=== PATIENT | male | born 1945 ===

== ENCOUNTER 2024-07-22 09:11 | Outpatient (AMB) | payer MEDICARE, SELFPAY ==
--- NOTE | 2024-07-22 09:13 | MHC.OFFVIS ---
Vital Signs 07/22/24 09:21 Height 5 ft 11 in Weight 173 lb 11.588 oz BMI 24.2 BP 162/93 H Blood Pressure Location Lt brachial Position Sitting Pulse 68 Intake Visit Reasons: Colonoscopy Screening Intake Note: Raul presents to in office visit as a new patient for colonoscopy screening. CC: Patient reports that his last colonoscopy was done 5 years ago at [facility] and they found 3 polyps that they could not removed because he was on blood thinners. Denies having any GI symptoms or concerns today. Chief Contract Officer Required: No Accompanied by: Self / Same As Patient Allergies aspirin Allergy (Unknown, Verified 07/22/24 09:24) Unknown HPI HPI Colonoscopy Screening: Details: 79-year-old male here for preprocedural meeting to discuss a screening colonoscopy. He is referred by [facility]. PMX History of brainstem infarction CVA Cervical radiculopathy Chronic low back pain Urinary retention Pre diabetes Hydrocele High cholesterol Hypertension * SURGICAL HISTORY Colonoscopy @ 2019 at [facility]= 3 on remove polyps Cervical disc repair * ALLERGIES Aspirin - chest tightness * [facility]: none in our system TODAY'S VISIT He had a colonoscopy 5 years ago at [facility] and he says they found 3 polyps. However, they did not remove him because he was on blood thinners at the time. The blood thinner was plavix and he is currently on it. This CVA did not leave him with any residual deficits. He denies cardiac or respiratory problems. NO anesthesia or sedation problems No ID problems. He had 3 polyps but there is no known FHX crc or polyps. [facility] Surgical History H/O colonoscopy Social History Alcohol intake: current Alcohol intake frequency: holidays/special occasions only Patient Tobacco Use Status: Never used Tobacco Use of substances other than those prescribed or required for medical reasons: No Review of Systems Const Denies fatigue, Denies fever(s), Denies night sweats, Denies poor appetite and Denies weight loss Eyes Details: glasses Reports requires corrective lenses ENT Reports Normal hearing present, Denies dental pain, Denies dysphagia, Denies hearing loss, Denies mouth pain, Denies odynophagia, Denies throat swelling, Denies tongue swelling and Reports other (Dentition adequate) Card Reports no additional complaints Resp Reports no additional complaints GI Details: Denies abdominal pain, Denies melena, Denies bloating, Denies hematochezia, Denies constipation, Denies GI cramping, Denies dysphagia, Denies excessive flatus, Denies early satiety, Denies heartburn, Denies diarrhea, Denies nausea, Denies odynophagia, Denies vomiting and Denies hematemesis Skin/Breast Denies pruritus, Denies lesions, Denies rash and Denies jaundice Neuro Reports Normal hearing present and Denies Abnormal speech present Endo Denies fatigue Aller/Immun Denies throat swelling and Denies tongue swelling Physical Exam Vital Signs: Last Vital Signs Pulse 68 07/22/24 09:21 BP 162/93 H 07/22/24 09:21 BMI result Body Mass Index 24.2 Const General: cooperative, no acute distress, well developed and well groomed Nutritional Appearance: average body habitus and well nourished Orientation/consciousness: oriented to person, oriented to place and oriented to time Limitations: No language barrier HEENT Head: Yes normocephalic and Yes atraumatic Eyes General: appearance normal, both eyes and all related structures Pupils: Equal, round and reactive pupils present Neck Neck: Yes normal visual inspection and Yes no lymphadenopathy Thyroid: Thyroid normal Resp Effort & Inspection: normal respiratory effort and able to speak in complete sentences Auscultation: clear to auscultation bilaterally Cardio Rate: regular rate Rhythm: regular rhythm Heart sounds: Normal, physiologic split S2 sound present Peripheral pulses: radial pulses present and posterior tibial pulses present GI Inspection: No distended and No Abdominal panniculus present Palpation (GI): Soft to palpation, nontender, no guarding, not rigid and No hepatosplenomegaly present Percussion: Yes normal to percussion Auscultation: normal bowel sounds Rectal Exam - Male: Yes deferred Skin General skin exam: no rashes or lesions noted, turgor normal, skin not dry, no jaundice, No spider nevi and no striae Rashes: no rashes Nails: normal Neuro General: oriented to person, oriented to place and oriented to time Cranial nerves: Yes Equal, round and reactive pupils present and Yes Normal hearing present Speech: No Abnormal speech present Extrem General: Yes normal to inspection, No clubbing, No cyanosis and No edema Psych Appearance: grossly normal and well kempt Mental Status: mental status grossly normal Speech and movement: Normal speech and movement present Affect: normal affect Attitude: cooperative Thought process: Normal thought process present and not confabulating Thought content: Normal thought content present Insight: Good insight present (Psych) Judgement: Good judgement present (Psych) Assessment & Plan Assessment & Plan (1) Tubular adenoma of colon: Comment: @ 2019 at [facility]= 3 unremoved polyps Code(s): D12.6 - Benign neoplasm of colon, unspecified Category: Medical (2) Pre-op examination: Code(s): Z01.818 - Encounter for other preprocedural examination Category: Medical Plan He had a colonoscopy 5 years ago at [facility] and he says they found 3 polyps. However, they did not remove him because he was on blood thinners at the time. The blood thinner was plavix and he is currently on it. This CVA did not leave him with any residual deficits. He denies cardiac or respiratory problems. NO anesthesia or sedation problems No ID problems. He had 3 polyps but there is no known FHX crc or polyps. Orders: Orders Comprehensive Met. Panel Today D12.6 - Benign neoplasm of colon, unspecified Colonoscopy - GI Use Only Today D12.6 - Benign neoplasm of colon, unspecified Complete Blood Count Auto Diff Today D12.6 - Benign neoplasm of colon, unspecified Medications: New sod sulf-pot chloride-mag sulf 1.479-0.188- 0.225 gram (Sutab) PO PER PKG DIR for colonoscopy prep 24 tabs 0RF Coding Level of Care Code New Pt Level 3 (42612) Diagnoses Tubular adenoma of colon D12.6 Pre-op examination Z01.818
[2024-07-22 09:21] VITALS: BP 162/93; PULSE 68; BMI 24.2
== END 2024-07-22 09:55 | disposition home or self-care (01) ==
PROVIDERS: PCP Physician Assistant Medical; Visit Provider Nurse Practitioner
DX: D12.6 Benign neoplasm of colon, unspecified (principal); Z01.818 Encounter for other preprocedural examination
CPT/HCPCS: 99203

== ENCOUNTER → 2024-07-22 09:11 | Outpatient (BNVA) | payer MEDICARE, SELFPAY | PROVIDERS: PCP Physician Assistant Medical; Visit Provider Nurse Practitioner | DX: Z01.818 Encounter for other preprocedural examination (principal); D12.6 Benign neoplasm of colon, unspecified | CPT/HCPCS: 99202 ==

== ENCOUNTER 2024-12-09 05:57 | Day surgery (SDC) | payer MEDICARE, SELFPAY ==
[2024-12-07 12:44] VITALS: BMI 24.3
--- NOTE | 2024-12-08 13:27 | P.CONAN_ITS ---
Documented by User: Reema Munoz NP 12/08/24 13:27 HPI - Anesthesia Eval Consult details Narrative: 79yo M for Colonoscopy Plavix for hx CVA PMFSH Active Problems Active Problems: All Active Problems Pre-op examination (Acute) Tubular adenoma of colon (Acute) Hydrocele (Acute) Pre-diabetes (Acute) Chronic low back pain (Acute) Osteoarthritis of cervical and lumbar spine (Acute) Brainstem infarction (Acute) High cholesterol (Acute) Hypertension (Acute) Past Medical History Medical History Chronic low back pain Elevated cholesterol Brain stem infarction Arthritis Pre-diabetes HTN (hypertension) Surgical History Surgical History History of surgery on arm H/O colonoscopy Social History Social History Are you a primary direct support professional caregiver to a significant other at home: No Do you presently have visiting nurse or other home services: No Alcohol intake: current Alcohol intake frequency: does not drink Patient Tobacco Use Status: Never used Tobacco Use of substances other than those prescribed or required for medical reasons: No Have you been hit, kicked, punched, or otherwise hurt by someone within the past year? If so, by whom?: No Are you DNR?: No Advance Directives: No Advance Directives Information Provided: Yes Advance Directives on File: No Recently lost weight without trying: No Nutrition Risks: No Nutritional Risk Poor oral hygiene: No Meds Allergies Allergy/AdvReac Type Severity Reaction Status Date / Time aspirin Allergy Unknown Unknown Verified 12/09/24 06:53 Home Medications ?Medication ?Instructions ?Recorded ?Confirmed ?Last Taken ?Type clopidogrel 75 mg tablet 75 mg PO DAILY 07/22/24 12/09/24 12/08/24 History lisinopril 40 mg tablet 40 mg PO DAILY 07/22/24 12/09/24 12/08/24 History atorvastatin 40 mg tablet 40 mg PO DAILY 12/07/24 12/09/24 12/08/24 History Exam Height,Weight and Vital Signs: Height 5 ft 11 in Weight 78.925 kg Assessment and Plan Assessment Anesthesia Assessment: Chart Reviewed Documented by User: Nneka Mcdowell MD 12/09/24 08:20 PMFSH Past Medical History Medical History Chronic low back pain Elevated cholesterol Brain stem infarction Arthritis Pre-diabetes HTN (hypertension) Family History Family history of problems with anesthesia: No Surgical History Surgical History History of surgery on arm H/O colonoscopy History of Problems with Anesthesia: No Social History Social History Are you a primary direct support professional caregiver to a significant other at home: No Do you presently have visiting nurse or other home services: No Alcohol intake: current Alcohol intake frequency: does not drink Patient Tobacco Use Status: Never used Tobacco Use of substances other than those prescribed or required for medical reasons: No Have you been hit, kicked, punched, or otherwise hurt by someone within the past year? If so, by whom?: No Are you DNR?: No Advance Directives: No Advance Directives Information Provided: Yes Advance Directives on File: No Recently lost weight without trying: No Nutrition Risks: No Nutritional Risk Poor oral hygiene: No Meds Allergies Allergy/AdvReac Type Severity Reaction Status Date / Time aspirin Allergy Unknown Unknown Verified 12/09/24 06:53 Home Medications ?Medication ?Instructions ?Recorded ?Confirmed ?Last Taken ?Type clopidogrel 75 mg tablet 75 mg PO DAILY 07/22/24 12/09/24 12/08/24 History lisinopril 40 mg tablet 40 mg PO DAILY 07/22/24 12/09/24 12/08/24 History atorvastatin 40 mg tablet 40 mg PO DAILY 12/07/24 12/09/24 12/08/24 History Exam Airway Mallampati Class: II TM Dist: >3cm Neck ROM: Full Heart: rrr Lungs: cta Assessment and Plan Assessment Anesthesia Assessment: Anesthesia Plan Discussed and Smoking Cess. Discussed Final Anesthetic Review Family History of Problems with Anesthesia: No History of Problems with Anesthesia: No NPO: Yes ASA Class: III Final Preanesthetic Review: No Changes in Pt Med Stat, Meds/Allgs Chart R keri, Consent Obtained/Reviewed and Anes Risks/Benef Reviewed Patient Risk: Intermediate Procedure Risk: Low Anesthetic Plan Anesthetic Plan: GA and MAC: Disposition: Standard PACU
--- OUTSIDE RECORDS SUMMARY | 2024-12-08 14:46 | XMS_ITS | Clinical Summary ---
Author Organization [facility] ity Address [address] [place] [address] Care Team Providers Care Market Relationship Manager Name Role Phone Lyric Palomino NP Primary Care Provider Unavailsandra e Medical History Medical History Date Comments Dizziness DX:Dizziness; CO MMENT: feeling off balance Social History Tobacco Use Types Packs/Day Years Used Date Smoking Tobacco: Never Smokeless Tobacco: Never Alcohol Use Standard Drinks/Week Comments Yes 0 (1 standard drink = 0.6 oz pur e alcohol) Sex and Gender Information Value Date Recorded Sex Assigned at Not on file Legal Sex Male 4:55 AM EST Gender Identity Not on file Sexual Orientation Not on file Obstetrics History Last Filed Vital Signs Vital Sign Reading Time Taken Comments Blood Pressure 136/67 08/18/2023 1:20 PM EST Pulse 85 08/18/2023 1:20 PM EST Temperature - - Respiratory Rate - - Oxygen Saturation - - Inhaled Oxygen Concentration - - Weight - - Height - - Body Mass Index - - Plan of Treatment Health Maintenance Due Date Last Done Comments DTaP,Tdap,and Td Vaccines (1 - Tdap) 1966 Pneumococcal Vaccine: 50+ Ye ars (1 of 1 - PCV) 1997 Zoster Vaccines (1 of 2) 1997 RSV Immunization Patients 60 + Years Old (1 - 1-dose 75+ series) 2022 Cholesterol Screening (Lipid Panel) 09/15/2022 Depression Screening 09/15/2022 Falls Risk Assessment 09/15/2022 Hepatitis C Screening 09/15/2022 Social Influencers of Health Screening 09/15/2022 Hypertension/CHF/CAD Annual BMP Blood Test 09/28/2022 COVID-19 Vaccine ( - 2023-2 5 season) 2024 Influenza Vaccine (#1) 2024 HIB Vaccines Aged Out No longer eligi ble based on patient's age to complete this topic HPV Vaccines Aged Out No longer eligi ble based on patient's age to complete this topic Hepatitis A Vaccines Aged Out No long er eligible based on patient's age to complete this topic Hepatitis B Vaccines Aged Out No long er eligible based on patient's age to complete this topic IPV Vaccines Aged Out No longer eligi ble based on patient's age to complete this topic MMR Vaccines Aged Out No longer eligi ble based on patient's age to complete this topic Meningococcal ACWY Vaccine Aged Out N o longer eligible based on patient's age to complete this topic Meningococcal B Vacine Aged Out No lo nger eligible based on patient's age to complete this topic RSV Immunization Patients Un zulay 20 months Aged Out No longer eligible b ased on patient's age to complete this topic Varicella Vaccines Aged Out No longer eligible based on patient's age to complete this topic Advance Directives Documents on File Type Date Recorded Patient Wrapper Operator Expl anation Health Care Decision (hx) 08/28/2020 AD RODRIGUEZ DIRECTIVE Health Care Decision (hx) 08/28/2020 AD RODRIGUEZ DIRECTIVE Health Care Decision (hx) 08/28/2020 AD RODRIGUEZ DIRECTIVE Health Care Decision (hx) 08/28/2020 AD RODRIGUEZ DIRECTIVE Care Teams Market Relationship Manager Relationship Specialty Start Date End Date Lyric Palomino NP Need Updated Address PCP - General 02/16/21
--- NOTE | 2024-12-08 18:23 | MHC.SHP ---
Pre-Procedural Eval Section A - 24 Hr Update-Section A only Date of Service: 12/09/24 Section B - Complete if H&P > 30 days Chief Complaint: screening Details of Present Illness: PMX History of brainstem infarction CVA Cervical radiculopathy Chronic low back pain Urinary retention Pre diabetes Hydrocele High cholesterol Hypertension * SURGICAL HISTORY Colonoscopy @ 2019 at [facility]= 3 on remove polyps Cervical disc repair Present Medications: see Short Stay Collaborative assessment Allergies: Allergies Allergy/AdvReac Type Severity Reaction Status Date / Time aspirin Allergy Unknown Unknown Verified 07/22/24 09:24 Review of Systems Review of Systems Comment: 10 point ROS negative Exam Surgical H&P Exam: Normal: HEENT, Normal: Heart, Normal: Lungs, Normal: Extremities, Normal: Abdomen, Normal: Skin and Normal: Neurological Plan Diagnosis/Plan: Unchanged I have reviewed the history and physical and performed a pertinent physical examination on my patient. No changes have occurred unless specified. Time Spent With Patient Time: Total time managing care of this patient today ____ minutes.
[2024-12-09 07:05] VITALS: BP 146/88; PULSE 74; RESP 14; TEMP 36.8; O2SAT 95; BMI 24.0
[2024-12-09] MEDS: Lactated Ringers 1,000 ML 100 ML IVCONT (07:16)
[2024-12-09 08:26] VITALS: BP 100/64; PULSE 76; RESP 16; TEMP 36.7; O2SAT 97
[2024-12-09 08:41] VITALS: BP 100/66; PULSE 73; RESP 16; O2SAT 97
--- NOTE | 2024-12-09 08:43 | P.OPN-COLO_ITS ---
Colonoscopy Operative Note Operative Note Date of Service: 12/09/24 Narrative: Procedure: Colonoscopy Indication: Personal history of polyps Endoscopist: Opal Fernandes MD Anesthesia Provider: Edie Armendariz CRNA Anesthesia type: MAC Instrument: Olympus [id number]-[id number] Consent: Indication, risks vs benefits, and alternatives were discussed with the patient who gave written informed consent to proceed. EKG, pulse, pulse oximetry and blood pressure were monitored throughout the procedure. Please see anesthesia flowsheet. Procedure: The patient was brought to the procedure room and placed in the left lateral decubitus position. IV medications were administered by the anesthesia provider in attendance. A digital rectal exam was performed which was normal. A distal attachment cap was affixed to the tip of the colonoscope which was then inserted through the anus and advanced through the colon to the cecum at 75 cm,and terminal ileum. Appendiceal orifice and ileocecal valve were identified. Mucosa was carefully examined under high definition white light as the instrument was slowly withdrawn in a retrograde panoramic fashion. Retroflexion was performed in rectum. The procedure was not difficult. There were no immediate obvious complications. The quality of the prep was BBPS: 2+3+3 = adequate Withdrawal time 10 minutes. Limitations: No limitations. Findings: Mucosa: Normal to cecum and terminal ileum. Protruding lesions: * Medium internal hemorrhoids without stigmata of recent bleeding. Impression: 1. Normal colon and terminal ileum mucosa 2. Internal hemorrhoids Recommendations: - Given age, repeat colonoscopy is optional in 10 years if patient is in good health.
== END 2024-12-09 09:14 | disposition home or self-care (01) ==
PROVIDERS: PCP Physician Assistant Medical; Visit Provider Internal Medicine
PROC: 0DJD8ZZ Inspection of Lower Intestinal Tract, Via Natural or Artificial Opening Endoscopic (ICD-10-PCS; CPT 45378; principal; 2024-12-09 07:30)
DX: Z12.11 Encounter for screening for malignant neoplasm of colon (principal); Z86.0101 Personal history of adenomatous and serrated colon polyps; K64.8 Other hemorrhoids; I10 Essential (primary) hypertension; E78.00 Pure hypercholesterolemia, unspecified; R73.03 Prediabetes; G89.29 Other chronic pain; M54.50 Low back pain, unspecified; Z86.73 Personal history of transient ischemic attack (TIA), and cerebral infarction without residual deficits; Z79.02 Long term (current) use of antithrombotics/antiplatelets; Z79.899 Other long term (current) drug therapy; Z98.890 Other specified postprocedural states
CPT/HCPCS: G0105; J2003; J2704

== ENCOUNTER → 2024-12-09 05:57 | Outpatient (BNV) | payer MEDICARE, SELFPAY | PROVIDERS: PCP Physician Assistant Medical; Visit Provider Internal Medicine | DX: Z12.11 Encounter for screening for malignant neoplasm of colon (principal); Z86.0100 Personal history of colon polyps, unspecified; K64.8 Other hemorrhoids | CPT/HCPCS: G0105 ==